=== PATIENT | male | born 1990 | race Caucasian/White ===

== ENCOUNTER 2017-06-21 17:09 | Emergency (ER) | payer BC ==
[~2017-06-21] VITALS: Ht 185.4 cm; Wt 92.1 kg
[~2017-06-21 17:09] MED LIST: ALBU90I; ALBUIS; AZIT250 PO; FLUSAL2505; PRED20 PO
[2017-06-21] MEDS ORDERED: Prednisone20 MG PO (17:24)
[2017-06-21] MEDS ORDERED: Pepcid40 MG PO (17:24)
== END 2017-06-21 17:35 | disposition home or self-care (01) ==
LOC: ER 17:09
DX: L23.7 Allergic contact dermatitis due to plants, except food (principal); Z79.899 Other long term (current) drug therapy
CPT/HCPCS: J3301

== ENCOUNTER 2017-07-11 16:15 | Emergency (ER) | payer BC ==
[~2017-07-11] VITALS: Ht 185.4 cm; Wt 92.5 kg
[~2017-07-11 16:15] MED LIST changes: +Pepcid40 MG PO; +Prednisone20 MG PO
[2017-07-11] MEDS ORDERED: ALBU90OI INH (18:16)
[2017-07-11] MEDS ORDERED: CLARINEX D PO (18:28)
== END 2017-07-11 18:24 | disposition home or self-care (01) ==
LOC: ER 16:15
DX: L23.7 Allergic contact dermatitis due to plants, except food (principal); J45.909 Unspecified asthma, uncomplicated
CPT/HCPCS: 96372; 99283; J3301

== ENCOUNTER 2024-10-06 15:02 | Emergency (ER) | payer OTHER ==
[~2024-10-06] VITALS: Ht 182.9 cm; Wt 109.8 kg
[~2024-10-06 15:02] MED LIST changes: +ACYCLOVIR800 MG PO; +ALBU90OI INH; +CLARINEX D PO; +METPRE4DP PO; +OXYC5 PO
[2024-10-06 16:23] LABS: BASOPHILS ABSOLUTE AUTO 0.02 K/mm3 (0.00-0.23); BASOPHILS PERCENT AUTO 0 % (0-2); EOSINOPHILS ABSOLUTE AUTO 0.22 K/mm3 (0.00-0.68); EOSINOPHILS PERCENT AUTO 2 % (0-6); Hematocrit 43.6 % (37.0-53.0); Hemoglobin 15.5 g/dL (13.5-17.5); IMMATURE GRAN ABSOLUTE AUTO 0.03 K/mm3 (0.00-0.10); IMMATURE GRAN PERCENT AUTO 0 % (0-1); LYMPHOCYTES ABSOLUTE AUTO 1.40 K/mm3 (0.84-5.20); LYMPHOCYTES PERCENT AUTO 14 % (21-46); MONOCYTES ABSOLUTE AUTO 0.46 K/mm3 (0.16-1.47); MONOCYTES PERCENT AUTO 5 % (4-13); Mean Corpuscular HGB Conc 35.6 g/dL (31.5-36.5); Mean Corpuscular Volume 86 fL (80-100); NEUTROPHILS ABSOLUTE AUTO 7.65 K/mm3 (1.96-9.15); NEUTROPHILS PERCENT AUTO 78 % (41-73); NRBC ABSOLUTE 0.00 K/mm3 (0.00-0.02); NRBC Auto 0.0 /100 WBC (0.0-0.2); Platelet Count 355 K/mm3 (150-400); RDW Coefficient Variation 12.1 % (11.7-14.2); RDW Standard Deviation 37.9 fL (35.1-46.3)
[2024-10-06 17:06] LABS: Alanine Aminotransfer (ALT/SGP 18.0 U/L (12-78); Albumin, Blood 4.5 g/dL (3.4-5.0); Albumin/Globulin Ratio 1.2 (0.8-1.8); Anion Gap 7.0 mmol/L (3-11); Aspartate Aminotrans (AST/SGOT 13.0 U/L (12-37); Bilirubin, Total 0.5 mg/dL (0.1-1.0); Blood Urea Nitrogen 9.0 mg/dL (8-24); CO2, Blood 30.0 mmol/L (21-32); Calcium, Blood 9.5 mg/dL (8.5-10.1); Chloride, Blood 104.0 mmol/L (98-108); Creatinine, Blood 0.82 mg/dL (0.60-1.20); Globulin, Blood 3.6 g/dL (2.2-4.0); Glucose, Blood 100.0 mg/dL (70-99); Potassium, Blood 3.8 mmol/L (3.5-5.5); Sodium, Blood 137.0 mmol/L (136-145); Total Protein, Blood 8.1 g/dL (6.4-8.2)
[2024-10-06 20:30] VITALS: BP 132/75
== END 2024-10-06 21:01 | disposition home or self-care (01) ==
LOC: ER 15:02
PROVIDERS: Student in an Organized Health Care Education/Training Program
DX: R00.2 Palpitations (principal); J45.909 Unspecified asthma, uncomplicated; Z79.899 Other long term (current) drug therapy
CPT/HCPCS: 71046; 80053; 83690; 84484; 85025; 93005; 93010; 99285-25